=== PATIENT | male | born 1960 | race Caucasian/White ===

== ENCOUNTER 2023-08-05 13:49 | Inpatient (IN) | payer OTHER ==
[2023-08-05] VITALS (7 sets, daily range): BP systolic 100–151; BP diastolic 55–97; PULSE 99–116; TEMP 97.6–97.8
[~2023-08-05] VITALS: Ht 190.5 cm; Wt 157.8 kg
--- NOTE | 2023-08-05 17:30 | NUR ---
PATIENT ARRIVED TO FLOOR BY EMS FROM [facility] W/ [facility] DRIP RUNNING AT 10ML/HR. VSS. ADMISSION AND ASSESSMENT COMPLETE. AT BEDSIDE. PATIENT WAS ABLE TO AMBULATE TO RESTROOM WITH NO DIFFICULTIES INDEPENDENTLY. ALL ORDERS ACKNOWLEDGED. PATIENT HAS NO REQUEST OR COMPLAINTS AT THIS TIME. DINNER ORDERED AND CALL LIGHT IN REACH.
[2023-08-05 17:56] LABS: BASO # 0.1 K/mm3 (0.0-0.2); BASO % 0.6 % (0.0-2.0); EOS # 0.2 K/mm3 (0.0-0.7); EOS % 2.6 % (0.0-4.0); GRAN # 4.4 K/mm3 (1.4-6.5); GRAN % 56.7 % (42.2-75.2); HEMATOCRIT 42.4 % (42.0-52.0); HEMOGLOBIN 13.8 g/dl (13.5-18.0); LYMPH # 2.5 K/mm3 (1.2-3.4); LYMPH % 31.9 % (20.0-51.0); MEAN CELL VOLUME 82 fl (80.0-100.0); MEAN CORPUSCULAR HEMOGLOBIN 27 pg (27-31); MEAN CORPUSCULAR HGB CONC 33 g/dl (33.0-37.0); MEAN PLATELET VOLUME 9.3 fl (7.4-10.4); MONO # 0.6 K/mm3 (0.1-0.6); MONO % 7.9 % (1.7-9.3); PLATELET COUNT 245 K/mm3 (130-400); RED BLOOD COUNT 5.19 M/mm3 (4.20-5.60); REDCELL DISTRIBUTION WIDTH-CV 14.3 % (11.5-14.5)
[2023-08-05 18:14] LABS: ALBUMIN 3.6 gm/dL (3.4-4.8); BILIRUBIN,TOTAL 0.6 mg/dL (0.2-1.2); CALCIUM 9.3 mg/dL (8.4-10.2); CREATININE, serum 0.77 mg/dL (0.72-1.25); POTASSIUM 3.7 mmol/L (3.5-4.5); TOTAL PROTEIN 6.7 gm/dL (6.2-8.1)
--- NOTE | 2023-08-05 18:18 | NUR ---
Agree with GRADY Morataya assessment of the patient. Patient A&Ox4. VSS. IV CDI, cardizem infusing 10ml/hr. with the patient. No further needs expressed. Call light within reach
--- NOTE | 2023-08-05 22:59 | NUR ---
Upon receiving report from day shift nurse, Cardizem drip was checked, running at 10 ml/hr per orders. Initiated hourly VS per protocol. Telemetry continues to show Aflutter, ranging from 90s-120s at rest. Denies pain and discomfort. Peripheral IV to right AC. Denies SOB and dyspnea at rest, but does with exertion. LS CTA. BSAx4. Voices no questions, needs, or concerns at this time. In bed with call light within reach.
[2023-08-06] VITALS (28 sets, daily range): BP systolic 113–148; BP diastolic 67–91; PULSE 60–116; TEMP 97.5–99.3
[2023-08-06 07:01] LABS: BASO # 0.1 K/mm3 (0.0-0.2); BASO % 0.8 % (0.0-2.0); EOS # 0.2 K/mm3 (0.0-0.7); EOS % 2.7 % (0.0-4.0); GRAN # 4.9 K/mm3 (1.4-6.5); GRAN % 63.7 % (42.2-75.2); HEMATOCRIT 41.6 % (42.0-52.0); HEMOGLOBIN 13.8 g/dl (13.5-18.0); LYMPH # 1.9 K/mm3 (1.2-3.4); LYMPH % 24.5 % (20.0-51.0); MEAN CELL VOLUME 80 fl (80.0-100.0); MEAN CORPUSCULAR HEMOGLOBIN 27 pg (27-31); MEAN CORPUSCULAR HGB CONC 33 g/dl (33.0-37.0); MONO # 0.6 K/mm3 (0.1-0.6); PLATELET COUNT 227 K/mm3 (130-400); REDCELL DISTRIBUTION WIDTH-CV 14.1 % (11.5-14.5)
--- NOTE | 2023-08-06 07:15 | NUR ---
Patient continues on Cardizem drip per orders. Remains in Aflutter. HR has been verying from 90s-110s at rest, increasing to 120s-130s with any exertion. Patient smiling and joking with staff this morning. Has been NPO since midnight. Voices no questions, needs, or concerns at this time. In bed with call light within reach.
[2023-08-06 07:18] LABS: CALCIUM 9.1 mg/dL (8.4-10.2); CHOLESTEROL RISK RATIO 4.6; CREATININE, serum 0.81 mg/dL (0.72-1.25); MAGNESIUM 1.9 mg/dL (1.6-2.6); POTASSIUM 3.7 mmol/L (3.5-4.5)
--- NOTE | 2023-08-06 09:30 | NUR ---
Patient is resting in bed, alert and oriented x4, states he feels the same. Getting cardize gtt per orders. Assessment completed, meds given. No further needs at this time. Call light within reach.
--- NOTE | 2023-08-06 09:58 | NUR ---
Initial visit; Patient thanked [employer] for looking in on him and offering Spiritual Care.
--- NOTE | 2023-08-06 14:29 | NUR ---
Patient is back from procedure, alert and oriented x 4, VSS, denies any chest pain or SOB. at the bedside, asking for food. Post op VS started.
--- NOTE | 2023-08-06 16:06 | NUR ---
KAT Chamberlain identified self as KAT Student and completed intake with patient. Patient lives in [place] with his Bianka (ph# [phone]) and his adult sons. Patient stated that he does not currently have a PCP but is interested in getting one established. KAT Chamberlain provided patient with PCP list for those in the surrounding area. KAT Chamberlain informed patient that he may need to follow up with a PCP after he is discharged. Patient obtains medications from [facility] on [address]. Patient reported that he has not had any issues with affording medications. Patient stated that he is independent with ADLs and in the community and does not utilize any DME. Patient is covered by [employer] Patient stated that his DPOA-HC is appointed to Bianka. Patient stated that he plans on returning home at time of discharge. Discharge Plan:Home
--- NOTE | 2023-08-06 16:42 | NUR ---
Pt has been stable after intervention. Report given to Cassie Tillman RN.
--- NOTE | 2023-08-06 17:51 | NUR ---
Patient received from SANJU Marcum around 1645. Patient alert and oriented x4. Shift assessment complete. Denies pain or discomfort. Dressing to incision on chest is CDI. Vital signs following cardioversion/MAULIK/loop recorder placement stable at this time. +2 pitting edema noted to bilateral lower extremities. Patient tolerating food and fluids well, son at bedside. Patient in bed with call light in reach, all needs met at this time.
[2023-08-07] VITALS (7 sets, daily range): BP systolic 110–130; BP diastolic 68–86; PULSE 67–78; TEMP 97.2–98.6
--- NOTE | 2023-08-07 07:19 | NUR ---
Patient laying in bed watching TV, A&Ox4. VSS. IV CDI. Denies pain and discomfort. Loop site CDI. No further needs expressed. Call light within reach
[2023-08-07 08:46] LABS: CALCIUM 9.3 mg/dL (8.4-10.2); CREATININE, serum 0.9 mg/dL (0.72-1.25); POTASSIUM 3.8 mmol/L (3.5-4.5)
[2023-08-08] VITALS (8 sets, daily range): BP systolic 115–144; BP diastolic 72–80; PULSE 59–67; TEMP 97.7–98.3
[2023-08-08 07:42] LABS: CALCIUM 8.8 mg/dL (8.4-10.2); CREATININE, serum 0.85 mg/dL (0.72-1.25); POTASSIUM 3.9 mmol/L (3.5-4.5)
--- NOTE | 2023-08-08 08:30 | NUR ---
SHIFT ASSESSMENT COMPLETE. VSS. PATIENT RESTING IN BED FINISHING UP BREAKFAST. ALL MORNING MEDS GIVEN PER ORDERS. INCISION TO LFT UPPER CHEST DRESSING CDI. PATIENT HAS NO REQUEST OR CONCERNS AT THSI TIME. CALL LIGHT IN REACH.
[2023-08-08] MEDS ORDERED: CEPHALEXIN500 M1 PO (11:29)
[2023-08-08] MEDS ORDERED: ELIQUIS 5MG PO (11:30)
[2023-08-08] MEDS ORDERED: BETAPACE 80MG80 MG PO (11:30)
[2023-08-08] MEDS ORDERED: COZAAR 50MG50 MG/TAB PO (11:31)
== END 2023-08-08 13:00 | disposition home or self-care (01) | DRG 261 ==
LOC: MEDICAL 13:49
PROVIDERS: ADMIT Internal Medicine
PROC: 0JH632Z Insertion of Monitoring Device into Chest Subcutaneous Tissue and Fascia, Percutaneous Approach (ICD-10-PCS; principal; 2023-08-06)
PROC: 5A2204Z Restoration of Cardiac Rhythm, Single (ICD-10-PCS; 2023-08-06)
DX: I48.91 Unspecified atrial fibrillation (principal); Z68.41 Body mass index [BMI] 40.0-44.9, adult; I48.92 Unspecified atrial flutter; F43.10 Post-traumatic stress disorder, unspecified; G47.33 Obstructive sleep apnea (adult) (pediatric); I42.9 Cardiomyopathy, unspecified; E66.9 Obesity, unspecified; I08.0 Rheumatic disorders of both mitral and aortic valves
CPT/HCPCS: C1764; J2704